=== PATIENT | male | born 2000 | race Caucasian/White ===

== ENCOUNTER 2020-02-29 12:46 | Emergency (ER) | payer MEDICAID, OTHER ==
[~2020-02-29] VITALS: Ht 170.2 cm; Wt 68.2 kg
[2020-02-29] MEDS ORDERED: KETOROLAC 30 MG/ML VIAL IVP ONE (13:30)
[2020-02-29] MEDS ORDERED: ONDANSETRON 4 MG/2 ML (SDV) Z0FRAN IVP ONE (13:30)
--- NOTE | 2020-02-29 13:33 | ED GU-Female ---
General Chief Complaint: - Urinary Stated Complaint: BACK PAIN Nursing Triage Note: Pt arrived by private vehicle with chief complaint of left lower back pain (flank pain). Pt is alert, oriented x 4 and ambulatory at arrival. Pt stated the pain started on Wednesday and has continued to hurt. Pain is a 7 with stabbing pain. Pt stated he has had kidney stones in the past. PT took flexeril for pain. Source: patient Exam Limitations: no limitations History of Present Illness Date Seen by Provider: Feb 29, 2020 Time Seen by Provider: 13:00 Initial Comments Patient is a 19-year-old male presents with left flank pain radiating to left groin. Symptoms are intermittent and began 3 days prior to ED arrival. Patient does report history of kidney stones and believes he parsed sediment in his urine stream 2 days ago, but awoke with intense left pelvic/testicular pain this morning with decreased urinary age. Denies flank pain, fever chills, sweats, gr oss hematuria. No abdominal tenderness. No other acute symptoms or complaints. No prior abdominal surgeries. Patient has previously pressed kidney stones without intervention Timing/Duration: just prior to arrival Severity/Quality: moderate Location: groin Radiation: groin Activities at Onset: none Prior Genitourinary Problems: similar symptoms Associated Symptoms: nausea/vomiting Allergies and Home Medications Allergies Coded Allergies: No Known Drug Allergies (Unverified , 02/29/20) Patient Home Medication List Home Medication List Reviewed: Yes Review of Systems Review of Systems Constitutional: see HPI EENTM: see HPI Respiratory: see HPI Cardiovascular: see HPI Gastrointestinal: see HPI Genitourinary: see HPI Musculoskeletal: see HPI Skin: see HPI Psychiatric/Neurological: See HPI Endocrine: See HPI Hematologic/Lymphatic: See HPI All Other Systemes Reviewed Negative Unless Noted: Yes Past Ijfundf-Spcbyv-Amvxrh Hx Past Med/Social Hx: Reviewed Nursing Past Med/Soc Hx Patient Social History Alcohol Use: Denies Use Recreational Drug Use: No Smoking Status: Never a Smoker 2nd Hand Smoke Exposure: No Recent Foreign Travel: No Contact w/Someone Who Travel: No Recent Infectious Disease Expo: No Recent Hopitalizations: No Ebola Symptoms: Denies Symptoms Listed Physical Abuse: No Sexual Abuse: No Mistreated: No Fear: No Seasonal Allergies Seasonal Allergies: No Past Medical History Surgeries: Yes (wisdom teeth) Respiratory: No Cardiac: No Neurological: No Genitourinary: Yes Kidney Stones Gastrointestinal: No Musculoskeletal: No Endocrine: No HEENT: No Cancer: No Psychosocial: No Blood Disorders: No Physical Exam Vital Signs Vital Signs - First Documented 02/29/20 12:53 Temp 36.5 Pulse 93 Resp 16 B/P (MAP) 126/93 Pulse Ox 96 O2 Delivery Room Air Capillary Refill : Height, Weight, BMI Height: '" Weight: lbs. oz. kg; 23.00 BMI Method: General Appearance: WD/WN, no apparent distress HEENT: PERRL/EOMI Neck: full range of motion, supple Cardiovascular: normal peripheral pulses, regular rate, rhythm Respiratory: chest non-tender, lungs clear Gastrointestinal: non tender, soft Back: normal inspection, no CVA tenderness Extremities: normal range of motion, non-tender Neurologic/Psychiatric: corporate officer II-XII nml as tested, no motor/sensory deficits, alert, oriented x 3 Lymphatic: no adenopathy Focused Exam Sepsis Stage: Ruled Out Progress/Results/Core Measures Suspected Sepsis SIRS Temperature: Pulse: Respiratory Rate: Blood Pressure / Mean: Results/Orders Lab Results Laboratory Tests Test 02/29/20 12:53 Range/Units Urine Color YELLOW Urine Clarity SL CLOUDY Urine pH 6.0 5-9 Urine Specific [place] >=1.030 1.016-1.022 Urine Protein TRACE H NEGATIVE Urine Glucose (UA) NEGATIVE NEGATIVE Urine Ketones NEGATIVE NEGATIVE Urine Nitrite NEGATIVE NEGATIVE Urine Bilirubin NEGATIVE NEGATIVE Urine Urobilinogen 0.2 < = 1.0 MG/DL Urine Leukocyte Esterase NEGATIVE NEGATIVE Urine RBC (Auto) 3+ H NEGATIVE Urine RBC 25-50 H /HPF Urine WBC 2-5 /HPF Urine Squamous Epithelial Cells NONE /HPF Urine Crystals PRESENT H /LPF Urine Amorphous Sediment LARGE HAROON URATES H /LPF Urine Bacteria NEGATIVE /HPF Urine Casts NONE /LPF Urine Mucus LARGE H /LPF Urine Culture Indicated NO My Orders Orders - GERSON POTTER DO Ct Abdomen/Pelvis Wo (02/29/20 13:26) Ketorolac Injection (Toradol Injection) (02/29/20 13:30) Ondansetron Injection (Zofran Injectio (02/29/20 13:30) Ua Culture If Indicated (02/29/20 13:36) Medications Given in ED Current Medications Medications Dose Ordered Sig/Nereyda Route Start Time Stop Time Status Last Admin Dose Admin Ketorolac Tromethamine 30 mg ONCE ONCE IVP 02/29/20 13:30 02/29/20 13:31 DC 02/29/20 13:46 30 MG Ondansetron HCl 4 mg ONCE ONCE IVP 02/29/20 13:30 02/29/20 13:31 DC 02/29/20 13:46 4 MG Vital Signs/I&O 02/29/20 02/29/20 12:53 12:53 Temp 36.5 36.5 Pulse 93 93 Resp 16 16 B/P (MAP) 126/93 126/93 Pulse Ox 96 O2 Delivery Room Air Room Air Capillary Refill : Departure Communication (Admissions) Left right testicular pain with history of kidney stones. CT abdomen and pelvis pending. Anticipate supportive care with urology referral. Impression Primary Impression: Kidney stone on left side Disposition: HOME, SELF-CARE Condition: Stable Departure-Patient Inst. Decision time for Depature: 14:05 Referrals: CAREN RODRIGUEZ MD (PCP/Family) Primary Care Physician Patient Instructions: Kidney Stones (DC) Add. Discharge Instructions: Your evaluated in the emergency department for left groin pain. A CT scan shows a tiny kidney stone passing into the bladder. Please increase fluids and take pain medication and nausea medication as directed. Follow-up with your PCP in one to 3 days for reevaluation if symptoms persist. Return to the ED if new or worsening symptoms. All discharge instructions reviewed with patient and/or family. Voiced understanding. Scripts Ondansetron (Ondansetron Odt) 4 Mg Tab.rapdis 4 MG PO Q8H, #10 TAB Prov: GERSON POTTER DO 02/29/20 Hydrocodone/Acetaminophen (Hydrocodone-Acetamin 5-325 mg) 1 Each Tablet 1 EACH PO Q6H, #10 TAB Prov: GERSON POTTER DO 02/29/20 GERSON POTTER DO Feb 29, 2020 13:33
--- NOTE | 2020-02-29 13:53 | Diagnostic Imaging Report ---
PROCEDURE: CT abdomen and pelvis without contrast. TECHNIQUE: Multiple contiguous axial images were obtained through the abdomen and pelvis without the use of intravenous contrast. Auto Exposure Controls were utilized during the CT exam to meet ALARA standards for radiation dose reduction. INDICATION: Left flank pain. COMPARISON: None. FINDINGS: Included portions of the lung bases are clear. CT abdomen: Punctate 2 mm calculus is identified in the region of the left UVJ (image 125, series 2). Despite this, there is no significant proximal hydroureteronephrosis. No other renal or ureteral calculi are seen on either side. There is no hydronephrosis or other evidence of obstruction on the right. No focal renal masses are seen on this noncontrast exam. The adrenal glands, spleen, pancreas, and liver have an unremarkable noncontrast CT appearance. There is no loculated fluid collection, free fluid, nor free air within the abdomen. No abnormal mesenteric or retroperitoneal adenopathy is seen. Small bowel loops are nondistended. Normal appendix is identified. Osseous structures show no acute abnormalities. CT pelvis: Again, there is 2 mm calculus in the region of the left UVJ. Urinary bladder is otherwise unopacified. There is no loculated fluid collection, free fluid, nor free air within the pelvis. No abnormal pelvic adenopathy is identified. Osseous structures show no acute abnormalities. IMPRESSION: 1. Punctate 2 mm calculus at the left UVJ. Despite this, there is no significant proximal hydronephrosis. 2. Otherwise, unremarkable noncontrast CT of the abdomen and pelvis. Dictated by: Dictated on workstation # [id number]
[2020-02-29 13:59] LABS: CLARITY,URINE SL CLOUDY; PROTEIN,URINE TRACE (NEGATIVE)
[2020-02-29 14:00] LABS: AMORPHOUS SEDIMENT,UR LARGE AMOR URATES /LPF; BACTERIA,URINE NEGATIVE /HPF; BILIRUBIN,URINE NEGATIVE (NEGATIVE); COLOR,URINE YELLOW; GLUCOSE, URINE (UA) NEGATIVE (NEGATIVE); KETONES,URINE NEGATIVE (NEGATIVE); LEUKOCYTE ESTERASE ,URINE NEGATIVE (NEGATIVE); NITRITE,URINE NEGATIVE (NEGATIVE); RBC,URINE 25-50 /HPF
[2020-02-29] MEDS ORDERED: ONDA4TAB11 PO (14:08)
[2020-02-29] MEDS ORDERED: HYDR-83 PO (14:08)
--- OUTSIDE RECORDS SUMMARY | 2020-02-29 15:42 | XMS REPORT | Continuity of Care Document ---
Author Organization Unknown Address Unknown Phone Unavailable Allergies There is no data. Medications There is no data. Problems Date Dx Coded Attending Type Code Diagnosis Diagnosed By 08/03/2017 DAYNE JULIEN MD Ot Z87.4 42 PERSONAL HISTORY OF URINARY CALCULI 08/24/2017 DAYNE JULIEN MD, Ot Z87.4 42 PERSONAL HISTORY OF URINARY CALCULI Procedures There is no data. Results There is no data. Encounters ACCT No. Visit Date/Time Discharge Status Pt. Type Provider Facility Loc./Unit Complaint [id number] 11/04/2019 11:50:00 11/04/2019 23:59:5 9 CLS Outpatient CAREN RODRIGUEZ [facility] [id number] 08/02/2017 12:50:00 017 23:59:59 CLS Outpatient DAYNE JULIEN MD [facility] RT DISTAL URETER STONE
== END 2020-02-29 14:13 | disposition home or self-care (01) ==
LOC: EDUNIT# 12:46 → ER FS 12:48
DX: N20.0 Calculus of kidney (principal)
CPT/HCPCS: 74176; 81000

== ENCOUNTER 2022-07-02 14:11 | Emergency (ER) | payer SELFPAY ==
[~2022-07-02] VITALS: Ht 170 cm; Wt 73.3 kg
[~2022-07-02 14:11] MED LIST: ACHD5005 PO; ONDA4TAB11 PO
--- NOTE | 2022-07-02 14:15 | ED GU-Male ---
General Stated Complaint: RLQ/BACK PAIN; URINARY RETENTION History of Present Illness Date Seen by Provider: Jul 02, 2022 Time Seen by Provider: 14:15 Initial Comments 21-year-old male presents with right flank pain has been present for about 2 weeks. Patient reports over the last couple days he has had a hard time peeing just small frequent amounts. Patient has had previous kidney stones and states that this feels similar. Patient presented to urgent care who sent him over here for further evaluation. Patient reports he not have any current pain or nausea at this time. Patient denies any pain with urination just small frequent amounts. Allergies and Home Medications Allergies Coded Allergies: No Known Drug Allergies (Unverified , 02/29/20) Patient Home Medication List Home Medication List Reviewed: Yes Hydrocodone/Acetaminophen (Hydrocodone-Acetamin 5-325 mg) 1 Each Tablet, 1 EACH PO Q6H Prescribed by: GERSON POTTER on 02/29/20 1408 Ondansetron (Ondansetron Odt) 4 Mg Tab.rapdis, 4 MG PO Q8H Prescribed by: GERSON POTTER on 02/29/20 1408 Review of Systems Review of Systems Constitutional: No chills, No fever Respiratory: No cough, No short of breath Cardiovascular: No chest pain, No palpitations Gastrointestinal: No abdominal pain, No nausea, No vomiting Genitourinary: denies burning; frequency, flank pain; denies pain Musculoskeletal: see HPI, back pain Skin: no symptoms reported Psychiatric/Neurological: No Symptoms Reported Endocrine: No Symptoms Reported Past Eoppvki-Yfeisj-Uljpbu Hx Seasonal Allergies Seasonal Allergies: No Past Medical History Surgeries: Yes (wisdom teeth) Respiratory: No Cardiac: No Neurological: No Genitourinary: Yes Kidney Stones Gastrointestinal: No Musculoskeletal: No Endocrine: No HEENT: No Cancer: No Psychosocial: No Blood Disorders: No Physical Exam Vital Signs Vital Signs - First Documented 07/02/22 14:13 Temp 36.3 Pulse 78 Resp 14 B/P (MAP) 123/79 (94) Pulse Ox 98 O2 Delivery Room Air Capillary Refill : Height, Weight, BMI Height: '" Weight: lbs. oz. kg; 23.00 BMI Method: General Appearance: WD/WN, no apparent distress Neck: full range of motion, supple Cardiovascular: normal peripheral pulses, regular rate, rhythm Respiratory: lungs clear, normal breath sounds Gastrointestinal: non tender, soft Extremities: normal range of motion, non-tender Neurologic/Psychiatric: alert, normal mood/affect, oriented x 3 Skin: normal color, warm/dry Progress/Results/Core Measures Suspected Sepsis SIRS Temperature: Pulse: Respiratory Rate: Laboratory Tests 07/02/22 14:24: White Blood Count 14.2H Blood Pressure / Mean: Laboratory Tests 07/02/22 14:24: Creatinine 1.35H, Platelet Count 386 Results/Orders Lab Results Laboratory Tests Test 07/02/22 14:24 07/02/22 15:26 Range/Units White Blood Count 14.2 H 4.3-11.0 10^3/uL Red Blood Count 5.00 4.30-5.52 10^6/uL Hemoglobin 15.1 13.3-17.7 g/dL Hematocrit 42 40-54 % Mean Corpuscular Volume 84 80-99 fL Mean Corpuscular Hemoglobin 30 25-34 pg Mean Corpuscular Hemoglobin Concent 36 32-36 g/dL Red Cell Distribution Width 12.1 10.0-14.5 % Platelet Count 386 130-400 10^3/uL Mean Platelet Volume 10.5 9.0-12.2 fL Immature Granulocyte % (Auto) 0 % Neutrophils (%) (Auto) 76 H 42-75 % Lymphocytes (%) (Auto) 15 12-44 % Monocytes (%) (Auto) 6 0-12 % Eosinophils (%) (Auto) 2 0-10 % Basophils (%) (Auto) 1 0-10 % Neutrophils # (Auto) 10.8 H 1.8-7.8 10^3/uL Lymphocytes # (Auto) 2.1 1.0-4.0 10^3/uL Monocytes # (Auto) 0.8 0.0-1.0 10^3/uL Eosinophils # (Auto) 0.3 0.0-0.3 10^3/uL Basophils # (Auto) 0.2 H 0.0-0.1 10^3/uL Immature Granulocyte # (Auto) 0.1 0.0-0.1 10^3/uL Neutrophils % (Manual) 70 % Lymphocytes % (Manual) 19 % Monocytes % (Manual) 7 % Eosinophils % (Manual) 1 % Basophils % (Manual) 2 % Band Neutrophils 1 % Sodium Level 140 135-145 MMOL/L Potassium Level 3.9 3.6-5.0 MMOL/L Chloride Level 102 98-107 MMOL/L Carbon Dioxide Level 22 21-32 MMOL/L Anion Gap 16 H 5-14 MMOL/L Blood Urea Nitrogen 11 7-18 MG/DL Creatinine 1.35 H 0.60-1.30 MG/DL Estimat Glomerular Filtration Rate 77 BUN/Creatinine Ratio 8 Glucose Level 108 H 70-105 MG/DL Calcium Level 9.3 8.5-10.1 MG/DL Urine Color YELLOW Urine Clarity CLEAR Urine pH 6.0 5-9 Urine Specific [place] >=1.030 1.016-1.022 Urine Protein NEGATIVE NEGATIVE Urine Glucose (UA) NEGATIVE NEGATIVE Urine Ketones 1+ H NEGATIVE Urine Nitrite NEGATIVE NEGATIVE Urine Bilirubin NEGATIVE NEGATIVE Urine Urobilinogen 0.2 < = 1.0 MG/DL Urine Leukocyte Esterase NEGATIVE NEGATIVE Urine RBC (Auto) 2+ H NEGATIVE Urine RBC 25-50 H /HPF Urine WBC 0-2 /HPF Urine Squamous Epithelial Cells RARE /HPF Urine Crystals NONE /LPF Urine Bacteria NEGATIVE /HPF Urine Casts NONE /LPF Urine Mucus SMALL H /LPF Urine Culture Indicated NO My Orders Orders - HALL,ELIU L DO Basic Metabolic Panel (07/02/22 14:20) Cbc With Automated Diff (07/02/22 14:20) Ua Culture If Indicated (07/02/22 14:20) Ns Iv 1000 Ml (Sodium Chloride 0.9%) (07/02/22 14:20) Ct Abdomen/Pelvis Wo (07/02/22 14:20) Manual Differential (07/02/22 14:24) Vital Signs/I&O 07/02/22 07/02/22 14:13 15:45 Temp 36.3 36.3 Pulse 78 78 Resp 14 14 B/P (MAP) 123/79 (94) 123/79 Pulse Ox 98 98 O2 Delivery Room Air Room Air Capillary Refill : Progress Note : Progress Note Patient with right-sided kidney stone at the UVJ. Some mild hydronephrosis. Patient urine does not show any acute infection. Recommend that he follows up with the urologist and primary care provider as needed. Patient stable and discharged Diagnostic Imaging Diagonstic Imaging: CT Plain Films/CT/US/NM/MRI: abdomen, pelvis Comments Date of Exam:07/02/22 CT ABDOMEN/PELVIS WO PROCEDURE: CT abdomen and pelvis without contrast. TECHNIQUE: Multiple contiguous axial images were obtained through the abdomen and pelvis without the use of intravenous contrast. Auto Exposure Controls were utilized during the CT exam to meet ALARA standards for radiation dose reduction. INDICATION: Right-sided kidney stone. COMPARISON: Comparison is made with prior CT from 02/29/2020. FINDINGS: The lung bases are clear. The liver and gallbladder are unremarkable. Pancreas and spleen are unremarkable. No adrenal mass is detected. Punctate nonobstructing calculi in the left kidney are noted. There is a punctate nonobstructing calculus in the lower pole of the right kidney. In addition, there is right-sided hydroureteronephrosis. The dilated right ureter is traced into the pelvis where there is a 4 mm calculus in the distal right ureter just above the UVJ. No bladder calculi are seen. Aorta is unremarkable. Bowel loops are normal in caliber. Appendix is unremarkable. There is no ascites. Prostate is unremarkable. IMPRESSION: Bilateral nonobstructing nephrolithiasis. In addition, there is a 4 mm distal right ureteric calculus just above the UVJ producing moderate hydroureteronephrosis. Reviewed: Reviewed/Discussed Departure Impression Primary Impression: Ureteral calculus, right Disposition: 01 HOME, SELF-CARE Condition: Stable Departure-Patient Inst. Referrals: CAREN RODRIGUEZ MD (PCP) Primary Care Physician Patient Instructions: Renal Colic, Kidney Stone Diet, Kidney Stone, Adult ED Add. Discharge Instructions: Encourage you to drink plenty of fluids, follow-up with your primary care provider as needed if symptoms or not improving over the next week. Strain your urine. Follow-up with a urologist due to your recurrent kidney stones, you can have your primary care provider help arrange this. Return to the ER as ELIU HALL DO Jul 02, 2022 14:15
[2022-07-02] MEDS ORDERED: NS IV 1000 ML 1,000 ML IV STA (14:20)
[2022-07-02 14:26] LABS: BASOPHILS # (AUTO) 0.2 10^3/uL (0.0-0.1); BASOPHILS % (AUTO) 1 % (0-10); EOSINOPHILS # (AUTO) 0.3 10^3/uL (0.0-0.3); EOSINOPHILS % (AUTO) 2 % (0-10); HEMATOCRIT 42 % (40-54); HEMOGLOBIN 15.1 g/dL (13.3-17.7); LYMPHOCYTES # (AUTO) 2.1 10^3/uL (1.0-4.0); LYMPHOCYTES % (AUTO) 15 % (12-44); MEAN CORPUSCULAR HEMOGLOBIN 30 pg (25-34); MEAN CORPUSCULAR HGB CONC 36 g/dL (32-36); MEAN CORPUSCULAR VOLUME 84 fL (80-99); MEAN PLATELET VOLUME 10.5 fL (9.0-12.2); MONOCYTES # (AUTO) 0.8 10^3/uL (0.0-1.0); MONOCYTES % (AUTO) 6 % (0-12); NEUTROPHILS # (AUTO) 10.8 10^3/uL (1.8-7.8); NEUTROPHILS % (AUTO) 76 % (42-75); PLATELET COUNT 386 10^3/uL (130-400); WHITE BLOOD COUNT 14.2 10^3/uL (4.3-11.0)
[2022-07-02 14:51] LABS: BAND NEUTROPHILS 1 %; BASOPHILS % (MANUAL) 2 %; CALCIUM 9.3 MG/DL (8.5-10.1); CREATININE SERUM 1.35 MG/DL (0.60-1.30); EOSINOPHILS % (MANUAL) 1 %; LYMPHOCYTES % (MANUAL) 19 %; MONOCYTES % (MANUAL) 7 %; NEUTROPHILS % (MANUAL) 70 %; POTASSIUM 3.9 MMOL/L (3.6-5.0)
--- NOTE | 2022-07-02 15:06 | Diagnostic Imaging Report ---
PROCEDURE: CT abdomen and pelvis without contrast. TECHNIQUE: Multiple contiguous axial images were obtained through the abdomen and pelvis without the use of intravenous contrast. Auto Exposure Controls were utilized during the CT exam to meet ALARA standards for radiation dose reduction. INDICATION: Right-sided kidney stone. COMPARISON: Comparison is made with prior CT from 02/29/2020. FINDINGS: The lung bases are clear. The liver and gallbladder are unremarkable. Pancreas and spleen are unremarkable. No adrenal mass is detected. Punctate nonobstructing calculi in the left kidney are noted. There is a punctate nonobstructing calculus in the lower pole of the right kidney. In addition, there is right-sided hydroureteronephrosis. The dilated right ureter is traced into the pelvis where there is a 4 mm calculus in the distal right ureter just above the UVJ. No bladder calculi are seen. Aorta is unremarkable. Bowel loops are normal in caliber. Appendix is unremarkable. There is no ascites. Prostate is unremarkable. IMPRESSION: Bilateral nonobstructing nephrolithiasis. In addition, there is a 4 mm distal right ureteric calculus just above the UVJ producing moderate hydroureteronephrosis. Dictated by: Dictated on workstation # [id number]
[2022-07-02 15:31] LABS: BILIRUBIN,URINE NEGATIVE (NEGATIVE); CLARITY,URINE CLEAR; COLOR,URINE YELLOW; GLUCOSE, URINE (UA) NEGATIVE (NEGATIVE); KETONES,URINE 1+ (NEGATIVE); LEUKOCYTE ESTERASE ,URINE NEGATIVE (NEGATIVE); NITRITE,URINE NEGATIVE (NEGATIVE); PROTEIN,URINE NEGATIVE (NEGATIVE)
[2022-07-02 15:38] LABS: BACTERIA,URINE NEGATIVE /HPF; RBC,URINE 25-50 /HPF; SQUAMOUS EPITHELIAL CELL,UR RARE /HPF; WBC,URINE 0-2 /HPF
[2022-07-02 15:45] VITALS: BP 123/79
== END 2022-07-02 15:45 | disposition home or self-care (01) ==
LOC: EDUNIT# 14:11 → ER FS 14:13
DX: N13.2 Hydronephrosis with renal and ureteral calculous obstruction (principal); Z28.310 Unvaccinated for COVID-19
CPT/HCPCS: 36415; 74176; 80048; 81000; 85007; 85027; 96360

== ENCOUNTER → 2023-01-14 | Outpatient (CLI) | payer OTHER ==
[~2023-01-14] MED LIST changes: +RT-ALBUTEROL SULF 2.5 MG/3 ML PRE-MIX VIAL INH ONE
== END ==
LOC: RT 01-06 15:45
PROVIDERS: ATTEND Nurse Practitioner Family
DX: J45.40 Moderate persistent asthma, uncomplicated (principal)
CPT/HCPCS: 94060; 94726; 94729